=== PATIENT | male | born 1945 | race Caucasian/White ===

== ENCOUNTER → 2023-03-13 | Outpatient (CLI) | payer MEDICARE ==
[~2023-03-13] VITALS: Ht 165.1 cm; Wt 82.0 kg
[2023-03-13 10:59] VITALS: BP 140/66; PULSE 91; RESP 18; TEMP 98.6; O2SAT 93
== END | disposition home or self-care (01) ==
LOC: SRCNTR 10:29
PROVIDERS: ATTEND Internal Medicine Pulmonary Disease
DX: G47.33 Obstructive sleep apnea (adult) (pediatric) (principal); R09.02 Hypoxemia; E66.9 Obesity, unspecified; K21.9 Gastro-esophageal reflux disease without esophagitis; I10 Essential (primary) hypertension; E78.5 Hyperlipidemia, unspecified; E11.9 Type 2 diabetes mellitus without complications; J18.9 Pneumonia, unspecified organism; U09.9 Post COVID-19 condition, unspecified
CPT/HCPCS: G0463